=== PATIENT | female | born 1955 | race Caucasian/White ===

== ENCOUNTER 2016-12-14 08:34 | Outpatient (CLI) | payer OTHER, MEDICAID ==
--- NOTE | 2016-12-21 12:53 | Mammography Report ---
DIGITAL SCREENING MAMMOGRAM: 12/14/2016 CLINICAL INDICATION: A 61-year-old with history of benign left breast biopsy for screening. COMPARISON: Films from [place] dated 10/11/2009, 09/05/2009, 11/08/2007. TECHNIQUE: Routine CC and MLO projections were obtained of the breasts. FINDINGS: The breasts again demonstrate heterogeneously dense fibroglandular parenchyma bilaterally. Circumscribed nodules are stable, as are coarse, typically benign calcifications. No suspicious ma sses, clustered microcalcifications, or regions of architectural distortion are identified. IMPRESSION: BENIGN FINDINGS. RECOMMENDATION: Routine annual screening unless otherwise clinically indicated. BIRADS CATEGORY 2 - BENIGN FINDINGS. STANDARD QUALIFYING STATEMENTS 1. This examination was reviewed with the aid of Computer-Aided Detection (CAD). 2. A negative or benign imaging report should not delay biopsy if clinically suspicious findings are present. Consider surgical consultation if warranted. More than 5% of cancers are not identified by i maging. 3. Dense breasts may obscure an underlying neoplasm. JOB #: [id number] EXT JOB #:[id number]
== END 2016-12-14 08:35 | disposition home or self-care (01) ==
LOC: DI 08:34
PROVIDERS: ATTEND Internal Medicine
DX: Z12.31 Encounter for screening mammogram for malignant neoplasm of breast (principal)
CPT/HCPCS: 77067

== ENCOUNTER 2017-06-18 13:06 | Outpatient (CLI) | payer OTHER ==
--- NOTE | 2017-06-18 15:49 | Ultrasound Report ---
ULTRASOUND OF RIGHT NECK: 06/18/2017 CLINICAL INDICATION: Palpable abnormality. TECHNIQUE: Real-time scanning was performed with medical customer service representative static images obtained. FINDINGS: Ultrasound of the palpable abnormality identified by the patient was performed. At this site, there is a 0.9 x 0.5 x 0.2 cm lymph node. No sonographically suspicious findings are identified. IMPRESSION: SMALL LYMPH NODE CORRELATING WITH THE PALPABLE ABNORMALITY. TD: 06/18/2017 15:47
== END 2017-06-18 13:07 | disposition home or self-care (01) ==
LOC: DI 13:06
PROVIDERS: ATTEND Internal Medicine
DX: R22.1 Localized swelling, mass and lump, neck (principal)
CPT/HCPCS: 76536

== ENCOUNTER 2017-12-14 04:35 | Outpatient (CLI) | payer OTHER ==
[2017-12-14 05:52] LABS: BUN - BLOOD UREA NITROGEN 19 mg/dL (6-20); CALCIUM 9.1 mg/dL (8.5-10.3); CARBON DIOXIDE - CO2 29 mmol/L (21-32); CHLORIDE 98 mmol/L (101-111); CHOL/HDL RATIO 5.5 (<4.4); CHOLESTEROL 268 mg/dL; CREATININE 0.9 mg/dL (0.4-1.0); GFR - MDRD 64 (>89); GLUCOSE 127 mg/dL (70-100); HDL CHOLESTEROL 49 mg/dL; LDL CHOLESTEROL,CALCULATED 196 mg/dL; SODIUM 135 mmol/L (135-145); VLDL CHOLESTEROL 23 mg/dL
[2017-12-14 06:05] LABS: HEMOGLOBIN A1C 0.68 g/dL
[2017-12-14 06:36] LABS: THYROID STIMULATING HORMONE 10.67 uIU/mL (0.34-5.60)
[2017-12-14 06:38] LABS: FREE T4 (FREE THYROXINE) 0.78 ng/dL (0.58-1.64)
== END 2017-12-14 04:36 | disposition home or self-care (01) ==
LOC: LAB 04:35
PROVIDERS: ATTEND Internal Medicine
DX: R73.01 Impaired fasting glucose (principal); E78.5 Hyperlipidemia, unspecified; E02 Subclinical iodine-deficiency hypothyroidism; Z12.11 Encounter for screening for malignant neoplasm of colon; Z12.12 Encounter for screening for malignant neoplasm of rectum; Z13.6 Encounter for screening for cardiovascular disorders
CPT/HCPCS: 36415; 80048; 80061; 83036; 83721; 84439; 84443

== ENCOUNTER 2018-01-28 08:43 | Outpatient (CLI) | payer OTHER ==
--- NOTE | 2018-01-31 13:23 | Mammography Report ---
Reason: BILAT SCREENING Procedure Date: 01/28/2018 Accession Number: [id number] / [id number] Procedure: [facility]ANK[facility] - Screening Mammo Dig Bilat CPT Code: FULL RESULT: EXAM: Screening Mammo Dig Bilat DATE: 01/28/2018 9:09 AM CLINICAL HISTORY: 62-year-old female with history of left breast benign lump removal. TECHNIQUE: Bilateral CC and MLO views were obtained. COMPARISON: 12/14/2016, 10/11/2009, 09/05/2009. FINDINGS: The breasts demonstrate heterogeneously dense fibroglandular parenchyma bilaterally. There are stable well-circumscribed masses in the right breast. Breast masses in the left breast with coarse calcifications that are increasing over time have an appearance compatible with involuting fibroadenoma. No suspicious masses, clustered microcalcifications, or regions of architectural distortion are identified. IMPRESSION: Benign findings RECOMMENDATION: Routine annual screening unless otherwise clinically indicated. BIRADS CATEGORY 2: Benign findings STANDARD QUALIFYING STATEMENTS: 1. This examination was not reviewed with the aid of Computer-Aided Detection (CAD). 2. A negative or benign imaging report should not delay biopsy if clinically suspicious findings are present. Consider surgical consultation if warrented. More than 5% of cancers are not identified by imaging. 3. Dense breasts may obscure an underlying neoplasm. 4. This examination was reviewed without the aid of 3D breast imaging (tomosynthesis).
== END 2018-01-28 08:44 | disposition home or self-care (01) ==
LOC: DI 08:43
PROVIDERS: ATTEND Internal Medicine
DX: Z12.31 Encounter for screening mammogram for malignant neoplasm of breast (principal)
CPT/HCPCS: 77067

== ENCOUNTER 2018-03-04 07:32 | Outpatient (CLI) | payer OTHER ==
[2018-03-04 08:10] LABS: ALBUMIN 4.2 g/dL (3.2-5.5); ALBUMIN/GLOBULIN RATIO 1.3 (1.0-2.2); ALKALINE PHOSPHATASE 210 IU/L (42-121); ALT ALANINE AMINOTRANSFERASE 34 IU/L (10-60); AST ASPARTATE AMINOTRANSFERASE 20 IU/L (10-42); BILIRUBIN,DIRECT 0.1 mg/dL (0.1-0.5); BILIRUBIN,TOTAL 0.9 mg/dL (0.2-1.0); BUN - BLOOD UREA NITROGEN 19 mg/dL (6-20); CALCIUM 9.3 mg/dL (8.5-10.3); CARBON DIOXIDE - CO2 30 mmol/L (21-32); CHLORIDE 99 mmol/L (101-111); CHOL/HDL RATIO 6.8 (<4.4); CHOLESTEROL 265 mg/dL; CREATININE 0.9 mg/dL (0.4-1.0); GFR - MDRD 64 (>89); GLUCOSE 124 mg/dL (70-100); HDL CHOLESTEROL 39 mg/dL; LDL CHOLESTEROL,CALCULATED 203 mg/dL; LDL/HDL RATIO 5.2 (<4.4); SODIUM 136 mmol/L (135-145); TOTAL PROTEIN 7.4 g/dL (6.7-8.2); VLDL CHOLESTEROL 23 mg/dL
== END 2018-03-04 07:33 | disposition home or self-care (01) ==
LOC: LAB 07:32
PROVIDERS: ATTEND Family Medicine
DX: Z13.6 Encounter for screening for cardiovascular disorders (principal); R94.5 Abnormal results of liver function studies
CPT/HCPCS: 36415; 80053; 80061; 82248; 83721

== ENCOUNTER 2022-03-29 07:44 | Emergency (ER) | payer OTHER ==
--- NOTE | 2022-03-29 08:15 | ED Physician Documentation ---
PD HPI BACK PAIN - Stated complaint Stated Complaint: BUTTOX PX - Chief complaint Chief Complaint: Trauma Ch/Bk - History obtained from History obtained from: Patient - History of Present Illness Timing - onset: How many days ago (11) Timing - duration: Days (11) Timing - details: Abrupt onset (she slipped and fell onto buttock and has had pain and swelling there, with bruising developed after several days. still feeling hard ball/lump area there and thought it would be better by now. bruising getting bigger.) Location: Other (left gluteal/sacral/ramus area.) Quality: Pain, Aching (pain with sitting.) Associated symptoms: No: Fever, Weakness, Numbness Worsened by: Palpation, Other (sitting) Contributing factors: Trauma (fell onto the area 11 days ago.) Similar symptoms before: Has not had sx before Review of Systems Skin: denies: Abrasion (s), Laceration (s) Neurologic: denies: Focal weakness, Numbness PD PAST MEDICAL HISTORY - Past Medical History Past Medical History: No Cardiovascular: None Respiratory: None Neuro: None Endocrine/Autoimmune: None - Past Surgical History 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 HEENT: Tonsil/Adenoidectomy - Present Medications Home Medications: Ambulatory Orders Medication Instructions Recorded Confirmed No Known Home Medications 03/29/22 03/29/22 - Allergies Allergies/Adverse Reactions: Allergies Allergy/AdvReac Type Severity Reaction Status Date / Time No Known Drug Allergies Allergy Verified 03/29/22 07:51 - Social History Does the pt smoke?: No Smoking Status: Never smoker Does the pt drink ETOH?: No Does the pt have substance abuse?: No PD ED PE NORMAL - Vitals Vital signs reviewed: Yes - General General: Alert and oriented X 3, No acute distress, Well developed/nourished - Back Back: No CVA TTP, No spinal TTP - Derm Derm: Normal color, Warm and dry - Extremities Extremities: Other (left gluteal and sacral area with tenderness and bruising. Some lumpy firm tissue felt in area c/w likely hematoma but not feeling single large area. ) - Neuro Neuro: Alert and oriented X 3, No motor deficit, No sensory deficit Results - Vitals Vitals: Oxygen O2 Source Room air - Rads (name of study) pelvic CT Radiology: Prelim report reviewed (ovarian cysts incidental, suggest U/S follow up. No fractures. Soft tissue bruising without fluid collection. ), See rad report PD MEDICAL DECISION MAKING - ED course Complexity details: reviewed results (hematoma of gluteal, without size needing drainage. No fractures. Incidental finding of ovarian cysts. ), considered differential (consider ramus fracture or residual hematoma that would need drainage. Can get imaging. ), d/w patient Departure - Departure Disposition: 01 Home, Self Care Clinical Impression: Traumatic hematoma of buttock, Ovarian cyst Condition: Stable Record reviewed to determine appropriate education?: Yes Instructions: ED Hematoma Follow-Up: Saira Salvador MD [Primary Care Provider] - Comments: Your CT scan shows some soft tissue swelling in the buttock/gluteal area. No fractures seen in the pelvis including tailbone and sacrum. No notable sized hematoma. It does clinically seem like there was a collection of blood in the area which is now left some areas of inflammation and tenderness. This should continue to improve over time. Warm towels or soaks may help soften some of the bruised tissue a little bit easier. Gentle massaging to the soft tissue can help loosen up some of the hematoma firmness as well. Continue with Tylenol for the pains. Add ibuprofen or naproxen 2-3 times daily as well. I would should expect continued improvement over the next couple of weeks. Incidental note on your CT scan was presence of some ovarian cysts. This is uncommon in postmenopausal and the suggestion would be to follow-up with your primary care for a more focused evaluation of ovarian cysts, most likely a pelvic ultrasound to be scheduled outpatient. Discharge Date/Time: 03/29/22 10:01
[2022-03-29] MEDS ORDERED: NAPROXEN 250 MG TABLET PO STA (08:50)
--- NOTE | 2022-03-29 09:15 | CT Report ---
PROCEDURE: PELVIS WO INDICATIONS: coccygeal/gluteal pain from fall TECHNIQUE: Noncontrast 3 mm axial sections acquired through the bony pelvis, with coronal and sagittal reformatt ing. For radiation dose reduction, the following was used: automated exposure control, adjustment of mA and/or kV according to patient size. COMPARISON: None. FINDINGS: Image quality: Excellent. Bones: Straightening of the normal cervical lordosis is seen, which is commonly observed in patients with muscular spasm. The sacrum and coccyx. No focal abnormalities can be seen at these sites. There is a chronic appearing fracture seen involving the left pubis. Generalized degenerative changes are seen. There are bone islands seen, including involving the infer ior ischio bones, left larger than right. Soft tissues: There is soft tissue bruising seen involving the left gluteal region, as on series 4 i mage 64. Pelvic cysts are seen posteriorly, measuring up to 5.4 cm on the left and up to 3.7 cm on the right. The uterus demonstrates normal size. No dilated loops of small bowel are seen. No significant colonic abnormality is seen. No significant ascites is seen. No enlarged inguinal or pelvic lymph nodes are seen. There is a small peribuccal her chino. IMPRESSION: Negative for fracture of the sacrum or coccyx. Soft tissue bruising can be seen involving the left gluteal region. There is a chronic appearing right pubis fracture. Bilateral pelvic cysts are seen. In a patient of this age, concern is raised for an indolent cystic n eoplasm. Please consider additional evaluation, beginning with a scheduled pelvic ultrasound. Additional findings: Small periumbilical fat-containing hernia Apparent bone islands Reviewed by: Calderon Thomas MD on 03/29/2022 8:14 AM [facility] Approved by: Calderon Thomas MD on 03/29/2022 8:14 AM [facility] Station ID: [id number]
[2022-03-29 10:01] VITALS: BP 120/78
== END 2022-03-29 10:01 | disposition home or self-care (01) ==
LOC: ED 07:44
DX: S30.0XXA Contusion of lower back and pelvis, initial encounter (principal); W01.0XXA Fall on same level from slipping, tripping and stumbling without subsequent striking against object, initial encounter; Y92.008 Other place in unspecified non-institutional (private) residence as the place of occurrence of the external cause; N83.202 Unspecified ovarian cyst, left side; N83.201 Unspecified ovarian cyst, right side
CPT/HCPCS: 72192; 99282; 99283; A9270

== ENCOUNTER 2022-04-28 15:43 | Outpatient (CLI) | payer MEDICARE, OTHER ==
--- NOTE | 2022-04-28 23:14 | Ultrasound Report ---
PROCEDURE: Pelvic w/Transvaginal INDICATIONS: OVARIAN CYST TECHNIQUE: Real-time scanning was performed of the pelvic organs, with image documentation. Additional endovagi nal scanning was necessary due to incomplete visualization of the adnexal and endometrial structures by transabdominal scanning. COMPARISON: Correlation made to CT pelvis 03/29/2022 FINDINGS: Uterus: Uterus is vertically oriented and normal in size at 7.4 x 2.9 x 4.7 cm. The myometrium is h omogeneous. The endometrium measures 3 mm in combined thickness. The cervix appears normal. Normal vascularity in the myometrium and endometrium. Ovaries: Transabdominal imaging demonstrates multilobulated cystic mass versus a few separate cystic masses closely opposed in the posterior cul-de-sac. Endovaginal imaging demonstrates again close appo sition of cystic masses, and also close association of normal-appearing ovarian tissue containing fol licles on each side of the cystic masses. Cystic masses are largely unilocular,, particularly the rig ht mass which measures up to 4.2 cm. A smaller one slightly medial may have a thin septation, and ralph sures 2.1 cm. One towards the left cul-de-sac has a thickened wall but no vascularity and measures 4. 9 cm. Other: No pathologic free abdominal or pelvic fluid. IMPRESSION: 1. 1 multiloculated or 3 discrete unilocular cystic masses posterior to the uterus in the pelvis. For improved resolution and to assess the organ of etiology, pelvic MRI is recommended using gynecologic protocol. 2. Normal uterus. Reviewed by: Lis Parker MD on 04/28/2022 11:13 PM PST Approved by: Lis Parker MD on 04/28/2022 11:13 PM PST Station ID: [id number]
== END 2022-04-28 15:44 | disposition home or self-care (01) ==
LOC: DI 15:43
PROVIDERS: ATTEND Internal Medicine
DX: R93.5 Abnormal findings on diagnostic imaging of other abdominal regions, including retroperitoneum (principal)

== ENCOUNTER 2022-05-12 08:00 | Outpatient (CLI) | payer MEDICARE, OTHER ==
[2022-05-12 15:59] LABS: BASOPHILS # (AUTO) 0.1 10^3/uL (0.0-0.1); BASOPHILS % (AUTO) 1.6 %; EOSINOPHILS # (AUTO) 0.1 10^3/uL (0.0-0.7); EOSINOPHILS % (AUTO) 3.8 %; HCT - HEMATOCRIT 45.2 % (37.0-47.0); HGB - HEMOGLOBIN 15.1 g/dL (12.0-16.0); LYMPHOCYTES # (AUTO) 0.7 10^3/uL (1.5-3.5); MEAN CORPUSCULAR HEMOGLOBIN 29.3 pg (27.0-31.0); MEAN CORPUSCULAR HGB CONC 33.4 g/dL (32.0-36.0); MEAN CORPUSCULAR VOLUME 87.8 fL (81.0-99.0); MEAN PLATELET VOLUME 10.3 fL (7.9-10.8); MONOCYTES # (AUTO) 0.2 10^3/uL (0.0-1.0); MONOCYTES % (AUTO) 4.7 %; NEUTROPHILS # (AUTO) 2.6 10^3/uL (1.5-6.6); NEUTROPHILS % (AUTO) 70.6 %; PLT - PLATELET COUNT 277 10^3/uL (130-450); RED BLOOD COUNT 5.15 10^6/uL (4.20-5.40); RED CELL DISTRIBUTION WIDTH 12.4 % (12.0-15.0); WHITE BLOOD COUNT 3.6 x10^3/uL (4.8-10.8)
[2022-05-12 16:08] LABS: CREATININE,URINE 95.1 mg/dL; MICROALBUM/CREATININE RATIO,UR 5.3 ug/mg (<30.0); MICROALBUMIN,URINE 0.5 mg/dL (0-300.0)
[2022-05-12 16:23] LABS: ALBUMIN 4.3 g/dL (3.2-5.5); ALBUMIN/GLOBULIN RATIO 1.4 (1.0-2.2); ALKALINE PHOSPHATASE 70 IU/L (42-121); ALT ALANINE AMINOTRANSFERASE 41 IU/L (10-60); AST ASPARTATE AMINOTRANSFERASE 26 IU/L (10-42); BILIRUBIN,TOTAL 0.7 mg/dL (0.2-1.0); BUN - BLOOD UREA NITROGEN 16 mg/dL (6-20); CALCIUM 9.2 mg/dL (8.5-10.3); CARBON DIOXIDE - CO2 29 mmol/L (21-32); CHLORIDE 100 mmol/L (101-111); CHOLESTEROL 281 mg/dL; CREATININE 0.8 mg/dL (0.4-1.0); GFR - MDRD 72 (>89); GLUCOSE 121 mg/dL (70-100); HDL CHOLESTEROL 47 mg/dL; LDL CHOLESTEROL,CALCULATED 212 mg/dL; LDL/HDL RATIO 4.5 (<4.4); POTASSIUM 4.4 mmol/L (3.5-5.0); SODIUM 138 mmol/L (135-145); TOTAL PROTEIN 7.3 g/dL (6.7-8.2); TRIGLYCERIDES 112 mg/dL; VLDL CHOLESTEROL 22 mg/dL
[2022-05-12 16:28] LABS: THYROID STIMULATING HORMONE 3.01 uIU/mL (0.34-5.60)
[2022-05-12 16:30] LABS: FREE T4 (FREE THYROXINE) 0.86 ng/dL (0.58-1.64)
[2022-05-12 21:07] LABS: ESTIMATED AVERAGE GLUCOSE 143 mg/dL (70-100); HEMOGLOBIN A1c% 6.6 % (4.27-6.07)
[2022-05-13 07:10] LABS: HCV AB 0.1 s/co ratio (0.0-0.9)
[2022-05-13 14:33] LABS: CA 125 11.6 U/mL (0.0-35.0)
== END 2022-05-12 23:59 | disposition home or self-care (01) ==
LOC: LAB.R 08:00
PROVIDERS: ATTEND Internal Medicine
DX: Z00.00 Encounter for general adult medical examination without abnormal findings (principal); E11.9 Type 2 diabetes mellitus without complications; R19.00 Intra-abdominal and pelvic swelling, mass and lump, unspecified site; E03.8 Other specified hypothyroidism; N83.9 Noninflammatory disorder of ovary, fallopian tube and broad ligament, unspecified
CPT/HCPCS: 80053; 80061; 82043; 82570; 83036; 83721; 84439; 84443; 85025; 86304; 86803

== ENCOUNTER 2022-05-19 13:57 | Outpatient (CLI) | payer MEDICARE, OTHER ==
--- NOTE | 2022-05-20 11:57 | Mammography Report ---
BILATERAL DIGITAL SCREENING MAMMOGRAM 3D/2D: 05/19/2022 CLINICAL: Routine screening. Comparison is made to exams dated: 01/28/2018 mammogram and 12/14/2016 mammogram - [facility]. Both breasts are heterogeneously dense, which may obscure small masses (category c / 51-75% glandular tissue). There are benign calcifications in the left breast. No significant masses, calcifications, or other findings are seen in either breast. There has been no significant interval change. IMPRESSION: BENIGN There is no mammographic evidence of malignancy. A 1 year screening mammogram is recommended. Based on the Tyrer Cuzick model (a risk assessment model) the patients lifetime risk is 9.1% and her 10 year risk is 4.4%. According to the ACR, ACS, and NCCN guidelines, an annual breast MRI exam logan g with mammogram is recommended if the patients lifetime risk is 20% or greater. This exam was interpreted at Station ID: [id number]. NOTE: For mammograms, a report in lay terms will be sent to the patient. Approximately 15% of breast malignancies will not be visualized mammographically. In the management of a palpable breast mass, a negative mammogram must not discourage biopsy of a clinically suspicious lesion. Electronically Signed By: Lis thompson/mae:05/19/2022 18:15:34 ACR BI-RADS Category 2: Benign Finding(s) 3342F PARENCHYMAL PATTERN: (D) - The breast(s) demonstrate(s) heterogeneously dense fibroglandular frankie magdaleno. BI-RADS CATEGORY: (2) - 2 RECOMMENDATION: (ANNUAL) - Recommend routine annual screening mammography. [id number] 1 year screening LATERALITY: (B)
== END 2022-05-19 13:58 | disposition home or self-care (01) ==
LOC: DI 13:57
PROVIDERS: ATTEND Internal Medicine
DX: Z12.31 Encounter for screening mammogram for malignant neoplasm of breast (principal)

== ENCOUNTER 2022-05-22 07:20 | Outpatient (CLI) | payer MEDICARE, OTHER ==
[~2022-05-22 07:20] MED LIST: GADOBUTROL 7.5 MMOL/7.5 ML VIAL ONE
[2022-05-22] MEDS ORDERED: GADOBUTROL 7.5 MMOL/7.5 ML VIAL IVP ONE (08:20)
--- NOTE | 2022-05-22 09:31 | MRI Report ---
PROCEDURE: PELVIS W/WO INDICATIONS: PELVIC MASS TECHNIQUE: Pelvic MRI images were obtained with and without contrast using multiple sequences and mul tiple planes. COMPARISON: CT 03/29/2022, ultrasound 04/28/2022 FINDINGS: Image quality: Good Lower abdomen: No evidence of bowel obstruction. No pathologic ascites Bladder: Underdistended, not well evaluated. Reproductive organs: Uterus is unremarkable. No pathologic junctional zone thickening. No discrete en dometrial mass or cervical mass. The ovaries are tethered posteriorly. Multiloculated cystic lesions are seen arising from both ovarie s, the largest measuring 5.8 x 4.9 cm on the left and 3.4 x 4.3 cm on the right. The largest locule o n the left has very subtle T1 signal and series 5, as well as T2 shading. On post gadolinium images, no discrete measurable enhancing nodule is identified. On T1 images, deep pelvic deposits of intrinsi c T1 signal are present, for example on image 10/77 on the left. On diffusion-weighted images, no discrete mass is identified. Compared to CT from March 2022, sizes are grossly stable allowing for differences in modality. Rectum: Unremarkable Vessels and lymph nodes: No pathologic adenopathy. No aneurysmal vessel identified Pelvic wall: Unremarkable Intrinsic T1 signal is seen in the left iliac wing of uncertain etiology, possibly a red marrow islan d. IMPRESSION: Multiloculated cystic masses arising from the ovaries, which are tethered together posterior to the u terus. Grossly stable size is seen compared to 03/29/2022. No discrete enhancing soft tissue nodule. Subtle T2 shading and T1 signal is seen in the largest locule on the left. There are also deep pelvi c intrinsically T1 hyperintense deposits. Findings are suspicious for sequelae of endometriosis. Part icularly for this postmenopausal demographic, differential still includes cystic neoplasm and follow- up imaging is recommended if gynecologic intervention is not pursued. Please also correlate with any history of endometriosis, which can predispose patients to certain types of ovarian cystic neoplasms. Reviewed by: Fred Dasilva MD on 05/22/2022 9:30 AM PST Approved by: Fred Dasilva MD on 05/22/2022 9:30 AM PST Station ID: [id number]
== END 2022-05-22 07:21 | disposition home or self-care (01) ==
LOC: DI 07:20
PROVIDERS: ATTEND Internal Medicine
DX: N83.202 Unspecified ovarian cyst, left side (principal); N83.201 Unspecified ovarian cyst, right side
CPT/HCPCS: 72197; A9585

== ENCOUNTER 2022-08-11 06:59 | Outpatient (CLI) | payer MEDICARE, OTHER ==
--- NOTE | 2022-08-11 08:33 | Ultrasound Report ---
PROCEDURE: Pelvic w/Transvaginal INDICATIONS: OVARIAN MASS TECHNIQUE: Real-time scanning was performed of the pelvic organs, with image documentation. Additional endovagi nal scanning was necessary due to incomplete visualization of the adnexal and endometrial structures by transabdominal scanning. COMPARISON: 04/28/2022 FINDINGS: Uterus: Uterus is anteverted and normal in size at 7.3 x 2.7 x 4.9 cm. The myometrium is homogeneou s. The endometrium measures 3 mm in combined thickness. Ovaries: The right ovary measures 6.0 x 2.8 x 2.9 cm, with a calculated ovarian volume of 26 cc. Th e left ovary measures 6.6 x 3.7 x 4.1 cm, with a calculated ovarian volume of 51 cc. Bilateral ovari an cystic lesions, described below: Ovarian Lesion 1: Right side. Size: 2.4 cm. (Size >10 cm, O-RADS 3-5 features.) Composition: Unilocular cystic (O-RADS 2). Wall: Smooth (O-RADS 2 features) Septations: None (O-RADS 2 features). Papillary projections: None (O-RADS 2 features). O-RADS score and recommendations: O-RADS 2 - no follow up based on size. Ovarian Lesion 2: Right side. Size: 4.3 cm. (Size >10 cm, O-RADS 3-5 features.) Composition: Unilocular cystic (O-RADS 2). Wall: Smooth (O-RADS 2 features) Septations: None (O-RADS 2 features). Papillary projections: None (O-RADS 2 features). O-RADS score and recommendations: O-RADS 2 - follow up in one year with US. Ovarian Lesion 3: Left side. Size: 6.9 cm. (Size >10 cm, O-RADS 3-5 features.) Composition: Unilocular cystic (O-RADS 2). Wall: Smooth (O-RADS 2 features) Septations: None (O-RADS 2 features). Papillary projections: None (O-RADS 2 features). O-RADS score and recommendations: O-RADS 2 - follow up in one year with US. Other: No pathologic free abdominal or pelvic fluid. IMPRESSION: Similar bilateral ovarian cystic lesions, O-RADS 2. Recommend follow-up in one year with ultrasound. Reviewed by: Jakub Florence on 08/11/2022 8:32 AM PDT Approved by: Jakub Florence on 08/11/2022 8:32 AM PDT Station ID: [id number]
== END 2022-08-11 14:42 | disposition home or self-care (01) ==
LOC: DI 06:59
PROVIDERS: ATTEND Obstetrics & Gynecology
DX: N83.202 Unspecified ovarian cyst, left side (principal); N83.201 Unspecified ovarian cyst, right side

== ENCOUNTER 2022-08-14 11:56 | Day surgery (SDC) | payer MEDICARE, OTHER ==
--- NOTE | 2022-08-14 12:19 | ANESTHESIA ---
Pre-Anesthesia VS, & Labs - Diagnosis positive cologuard - Procedure colonoscopy Vital Signs: Temp Pulse Resp BP Pulse Ox O2 Flow Rate 36.4 C L 67 16 128/74 97 08/14/22 12:11 08/14/22 12:11 08/14/22 12:11 08/14/22 12:11 08/14/22 12:11 Height: 5 ft 3 in Weight (kg): 67 kg Body Mass Index: 26.2 BMI Classification: Overweight - NPO Other (prep as directed) - Is Patient ?: No Home Medications and Allergies Home Medications: Ambulatory Orders Atorvastatin [Lipitor] 10 mg PO HS 08/13/22 Atorvastatin [Lipitor] 10 mg PO HS 08/13/22 Allergies/Adverse Reactions: Allergies Allergy/AdvReac Type Severity Reaction Status Date / Time No Known Drug Allergies Allergy Verified 03/29/22 07:51 Anes History & Medical History - Anesthetic History Anesthesia Complications: reports: No previous complications - Medical History Cardiovascular: reports: None Pulmonary: reports: None Gastrointestinal: reports: None Urinary: reports: None Neuro: reports: None Musculoskeletal: reports: None Endocrine/Autoimmune: reports: None Skin: reports: None Smoking Status: Never smoker History of Cancer?: No - Surgical History Eyes Ears Nose Throat (EENT): reports: Tonsil/Adenoidectomy Gynecologic: reports: section Exam General: Alert, Oriented x3 Dental: WNL Mouth Opening: Greater than 4 Fingerbreadths Neck Mobility: Normal Mallampati classification: I Thyromental Distance: greater than 6 cm Respiratory: Lungs clear Cardiovascular: Regular rate Mental/Cognitive Status: Alert/Oriented X3 Plan Anesthesia Type: Total IV Consent for Procedure(s) Verified and Reviewed: Yes Code Status: Attempt Resuscitation ASA classification: 2-Mild systemic disease Is this case an emergency?: No
[2022-08-14] MEDS ORDERED: LACTATED RINGERS 1,000 ML IV ONE ×2 (12:29→14:13)
[2022-08-14] MEDS ORDERED: PROPOFOL 500 MG/50 ML 500 MG/50 ML VIAL ONE (13:08)
[2022-08-14 14:38] VITALS: BP 116/78
--- NOTE | 2022-08-14 14:45 | ANESTHESIA POST OP EVALUATION ---
Anesthesia Post Eval - Post Anesthesia Eval Vitals: Last Vital Signs Temp 36.2 C L 08/14/22 14:38 Pulse 61 08/14/22 14:38 Resp 12 08/14/22 14:38 BP 116/78 08/14/22 14:38 Pulse Ox 100 08/14/22 14:38 O2 Flow Rate CV Function Including HR & BP: Stable Pain Control: Satisfactory Nausea & Vomiting: Negative Mental Status: Baseline Respiratory Status: Airway Patent Hydration Status: Satisfactory Anesthesia Complications: None
== END 2022-08-14 11:57 | disposition home or self-care (01) ==
LOC: SDS 11:56
PROVIDERS: ATTEND Surgery
PROC: 0DBM8ZZ Excision of Descending Colon, Via Natural or Artificial Opening Endoscopic (ICD-10-PCS; principal; 2022-08-14 13:15)
DX: Z12.11 Encounter for screening for malignant neoplasm of colon (principal); R19.5 Other fecal abnormalities; D12.4 Benign neoplasm of descending colon; E11.9 Type 2 diabetes mellitus without complications
CPT/HCPCS: 45380; J7120